=== PATIENT | male | born 1985 | race Two or more races ===

== ENCOUNTER 2018-03-09 06:52 | Emergency (ER) | payer OTHER ==
[~2018-03-09] VITALS: Ht 167.6 cm; Wt 160.0 kg
[2018-03-09] MEDS ORDERED: gabapentin 300mg capsule PO ONE (07:20)
[2018-03-09] MEDS ORDERED: ondansetron/PF 4mg/2ml inj IV ONE (07:20)
[2018-03-09] MEDS ORDERED: LORazepam 2 mg/ml vial IV ONE ×2 (07:20→10:00)
[2018-03-09] MEDS ORDERED: ketorolac trometh. 30mg/ml inj. IV ONE (07:20)
[2018-03-09] MEDS ORDERED: ringers solution, lactated 1000ml IV soln IV ONE (07:20)
[2018-03-09 07:37] LABS: BASOPHILS # (AUTO) 0.1 X10'3 (0-0.2); BASOPHILS % (AUTO) 1.3 % (0-1); EOSINOPHILS % (AUTO) 0.2 % (0-6); HEMATOCRIT 48.1 % (42.0-52.0); HEMOGLOBIN 16.6 g/dl (14.0-17.9); LYMPHOCYTES # (AUTO) 0.8 X10'3 (1.1-4.8); LYMPHOCYTES % (AUTO) 12.1 % (21-51); MEAN CORPUSCULAR HEMOGLOBIN 32.5 PG (27.0-31.0); MEAN CORPUSCULAR HGB CONC 34.4 % (33.0-36.5); MEAN CORPUSCULAR VOLUME 94.5 FL (78-98); MONOCYTES # (AUTO) 0.4 X10'3 (0-0.9); MONOCYTES % (AUTO) 5.7 % (2-12); NEUTROPHILS # (AUTO) 5.4 X10'3 (1.8-7.7); NEUTROPHILS % (AUTO) 80.7 % (42-75); PLATELET COUNT 199 X10'3 (140-440); RED BLOOD COUNT 5.09 X10'6 (4.70-6.10); RED CELL DISTRIBUTION WIDTH 14.6 % (11.5-14.5); WHITE BLOOD COUNT 6.6 X10'3 (4.5-11.0)
[2018-03-09 07:52] LABS: ALANINE AMINOTRANSFERASE 361 U/L (12-78); ALBUMIN 4.2 G/DL (3.4-5.0); ALKALINE PHOSPHATASE 121 IU/L (46-116); ANION GAP 16 (8-16); ASPARTATE AMINO TRANSFERASE 416 U/L (10-37); BILIRUBIN,TOTAL 1.1 MG/DL (0.1-1.0); BLOOD UREA NITROGEN 7 MG/DL (7-18); BUN/CREATININE RATIO 7.2 (5.4-32.0); CALCIUM 8.9 MG/DL (8.5-10.1); CHLORIDE 101 MMOL/L (99-107); CREATININE 0.97 MG/DL (0.60-1.10); GLUCOSE 148 MG/DL (70-104); LIPASE 269 U/L (73-393); POTASSIUM 3.8 MMOL/L (3.5-5.1); SODIUM 141 MMOL/L (135-145); TOTAL CARBON DIOXIDE 24.5 MMOL/L (24-32); TOTAL PROTEIN 8.4 G/DL (6.4-8.2); eGFR 89 ML/MIN
[2018-03-09] MEDS ORDERED: sucralfate 1gm/10ml UD suspension PO STA (08:20)
[2018-03-09] MEDS ORDERED: mag hydrox/Alum hydrox/simeth 30ml oral suspension PO ONE (08:20)
[2018-03-09] MEDS ORDERED: LIDOcaine Viscous 15ml cup PO ONE (08:20)
[2018-03-09 08:23] LABS: CLARITY,URINE CLEAR (Clear); COLOR,URINE YELLOW (Yellow); GLUCOSE, URINE NEGATIVE (Neg); KETONES,URINE NEGATIVE (Neg); LEUKOCYTE ESTERASE ,URINE NEGATIVE (Neg); NITRITES, URINE NEGATIVE (Neg); OCCULT BLOOD,URINE TRACE-INTACT (Neg); PH,URINE 5.5 (4.8-8.0); PROTEIN,URINE TRACE mg/dl (Neg); UROBILINOGEN,URINE 0.2 E.U/dL (0.2-1.0)
[2018-03-09 08:24] LABS: UA COLLECTION TYPE CLN CATCH MIDSTREAM
[2018-03-09] MEDS ORDERED: SUCR1TAB34 PO (08:29)
[2018-03-09] MEDS ORDERED: GABA-532 PO (08:30)
[2018-03-09 08:31] LABS: BACTERIA,URINE NONE SEEN /HPF (Neg); HYALINE CASTS 0-3 /LPF (NEGATIVE); MUCUS STRANDS FEW /LPF (Neg); RBC,URINE 0-2 /HPF (0-2); SQUAMOUS EPITHELIAL CELL,UR FEW /LPF (FEW); WBC,URINE NONE SEEN /HPF (0-4)
[2018-03-09] MEDS ORDERED: LORazepam 2 mg/ml vial ONE (09:57)
[2018-03-09 10:12] VITALS: BP 146/100
== END 2018-03-09 10:16 | disposition home or self-care (01) ==
LOC: ER 06:53
DX: K29.20 Alcoholic gastritis without bleeding (principal); R10.12 Left upper quadrant pain; F10.239 Alcohol dependence with withdrawal, unspecified; Z88.0 Allergy status to penicillin; Z79.899 Other long term (current) drug therapy
CPT/HCPCS: 36415; 80053; 81001; 83690; 85025; 96361; 96374; 96375; 99285; J1885; J2060; J2405; J7030; J7120